=== PATIENT | female | born 1955 | race Caucasian/White ===

== ENCOUNTER 2021-09-28 12:30 | Inpatient (IN) | payer MEDICARE ==
[~2021-09-28] VITALS: Ht 165.1 cm; Wt 61.7 kg
[2021-09-28 13:51] LABS: RED BLOOD COUNT 4.44 M/UL (4.00-5.10); WHITE BLOOD COUNT 10.4 K/UL (4.5-11.0)
[2021-09-28 14:11] LABS: BUN/CREATININE RATIO 12 (0-10)
[2021-09-28 15:19] LABS: BORDETELLA PARAPERTUSSIS Not Detected (Not Detectd); BORDETELLA PERTUSSIS Not Detected (Not Detectd); CHLAMYDIA PNEUMONIAE Not Detected (Not Detectd); CORONAVIRUS HKU1 Not Detected (Not Detectd); CORONAVIRUS NL63 Not Detected (Not Detectd); CORONAVIRUS OC43 Not Detected (Not Detectd); CORONOAVIRUS 229E Not Detected (Not Detectd); HUMAN METAPNEUMOVIRUS Not Detected (Not Detectd); HUMAN RHINOVIRUS/ENTEROVIRUS Not Detected (Not Detectd); INFLUENZA A Not Detected (Not Detectd); INFLUENZA B Not Detected (Not Detectd); MYCOPLASMA PNEUMONIAE Not Detected (Not Detectd); PARAINFLUENZA VIRUS 1 Not Detected (Not Detectd); PARAINFLUENZA VIRUS 2 Not Detected (Not Detectd); PARAINFLUENZA VIRUS 3 Not Detected (Not Detectd); PARAINFLUENZA VIRUS 4 Not Detected (Not Detectd); RESPIRATORY SYNCYTIAL VIRUS Not Detected (Not Detectd); SARS-CoV-2 NOT DETECTED (Not Detectd)
[2021-09-28] MEDS ORDERED: MUCUS RELIEF600 MG PO (18:30)
[2021-09-28] MEDS ORDERED: BREZTRI AEROS10.7 GM INH (18:30)
[2021-09-28] MEDS ORDERED: MONTELUKAST SOD10 MG PO (18:31)
[2021-09-28] MEDS ORDERED: HYDROCODON-ACE1 EAC4 PO (18:31)
[2021-09-28] MEDS ORDERED: PROAIR HFA8.5 GM INH (18:31)
[2021-09-28] MEDS ORDERED: ESCITALOPRAM OX20 MG PO (18:31)
[2021-09-28] MEDS ORDERED: IPRAT-ALBUT 0.5-3 ML INH (18:31)
[2021-09-28] MEDS ORDERED: KLONOPIN0.5 MG PO (18:32)
[2021-09-28] MEDS ORDERED: ADVIL200 M1 PO (18:32)
[2021-09-29 01:45] LABS: HEMOGLOBIN 12.8 gm/dl (12.3-15.3); RED BLOOD COUNT 4.4 M/UL (4.00-5.10); WHITE BLOOD COUNT 9.2 K/UL (4.5-11.0)
--- NOTE | 2021-09-29 02:33 | NUR ---
NOTIFIED OF CRITICAL LACTIC ACID LEVEL. RECIEVED NO NEW ORDERS. WILL CONTINUE TO MONITOR.
[2021-09-29 03:26] LABS: BUN/CREATININE RATIO 13 (0-10)
--- NOTE | 2021-09-29 06:14 | NUR ---
NOTIFIED OF CRITICAL LACTIC ACID. RECIEVED NO NEW ORDERS. WILL CONTINUE TO MONITOR.
--- NOTE | 2021-09-30 05:39 | NUR ---
CONTACTED PHARMACY TO VERIFY IF SOLU-MEDROL WAS SUPPOSE TO BE IV OR IVP. PER SOFIYA IN PHARMACY IT SHOULD BE IVP, eMAR WAS UPDATED TO TO REFLECT IVP.
[2021-09-30 06:39] LABS: HEMOGLOBIN 13.1 gm/dl (12.3-15.3); RED BLOOD COUNT 4.5 M/UL (4.00-5.10); WHITE BLOOD COUNT 9.7 K/UL (4.5-11.0)
[2021-09-30 07:01] LABS: BUN/CREATININE RATIO 17 (0-10)
[2021-10-01 06:13] LABS: HEMOGLOBIN 13.8 gm/dl (12.3-15.3); RED BLOOD COUNT 4.75 M/UL (4.00-5.10)
[2021-10-01 06:16] LABS: WHITE BLOOD COUNT 13.8 K/UL (4.5-11.0)
[2021-10-02 06:34] LABS: HEMOGLOBIN 13.8 gm/dl (12.3-15.3); RED BLOOD COUNT 4.75 M/UL (4.00-5.10)
[2021-10-02 06:38] LABS: WHITE BLOOD COUNT 9.3 K/UL (4.5-11.0)
[2021-10-02 17:12] LABS: ORGANISM ID Not indicated. (.); SPECIMEN SOURCE Urine (.); STREPTOCOCCUS PNEUMONIAE AG Negative (Negative)
== END 2021-10-02 18:07 | disposition home or self-care (01) | DRG 286 ==
LOC: ER1 12:30 → MED SURG 4 17:49 → CDU 17:49 → MED SURG 4 21:38
PROVIDERS: Internal Medicine; Physician Assistant Medical; ADMIT Internal Medicine
PROC: B24BZZZ Ultrasonography of Heart with Aorta (ICD-10-PCS; principal; 2021-09-29)
PROC: 4A023N7 Measurement of Cardiac Sampling and Pressure, Left Heart, Percutaneous Approach (ICD-10-PCS; 2021-10-01)
PROC: B2111ZZ Fluoroscopy of Multiple Coronary Arteries using Low Osmolar Contrast (ICD-10-PCS; 2021-10-01)
PROC: B2151ZZ Fluoroscopy of Left Heart using Low Osmolar Contrast (ICD-10-PCS; 2021-10-01)
DX: I11.0 Hypertensive heart disease with heart failure (principal); I50.43 Acute on chronic combined systolic (congestive) and diastolic (congestive) heart failure; J18.9 Pneumonia, unspecified organism; J96.01 Acute respiratory failure with hypoxia; J44.1 Chronic obstructive pulmonary disease with (acute) exacerbation; J44.0 Chronic obstructive pulmonary disease with (acute) lower respiratory infection; E87.2 Acidosis; Z20.822 Contact with and (suspected) exposure to COVID-19; F41.9 Anxiety disorder, unspecified; E87.6 Hypokalemia; F17.200 Nicotine dependence, unspecified, uncomplicated; I42.9 Cardiomyopathy, unspecified; Z79.82 Long term (current) use of aspirin; Z79.899 Other long term (current) drug therapy; Z83.3 Family history of diabetes mellitus; Z83.6 Family history of other diseases of the respiratory system; Z90.710 Acquired absence of both cervix and uterus; Z90.89 Acquired absence of other organs; Z90.49 Acquired absence of other specified parts of digestive tract
CPT/HCPCS: ECHO; 36415; 36600; 71045; 71046; 80048; 80053; 80061; 81001; 82550; 82553; 82607; 82803; 83036; 83540; 83550; 83605; 83735; 83880; 84100; 84132; 84484; 85025; 85027; 85652; 86140; 87040; 87278; 87633; 87899; 93005; 93306; 94640; 94664; 94760; 96372; 96374; 96375; 96376; 99152; 99153; 99284; C1769; C1887; C1894; J0360; J0696; J1644; J1650; J1940; J2250; J2920; J3010; J7040; Q9965; Q9967